=== PATIENT | female | born 1945 | race Caucasian/White ===

== ENCOUNTER 2018-06-10 12:36 | Inpatient (IN) ==
--- NOTE | 2018-06-10 12:58 | Anesthesia Evaluation PreOp ---
Date of Encounter: 06/10/18 Time of Encounter: 12:56 - Past History Planned Operation: Left Carotid Endarterectomy Cardiac History: [place], HTN, Hyperlipidemia, Cardiac Stent (stent x 1 in 2012) Pulmonary History: Former smoker (quit in 1987), Other (latent TB) EMBEDDED CASE MANAGER History: Denies Any Significant HX Other Medical History: Renal (has right kidney only), Thyroid, GERD Anesthesia History: No Prior Anesthetic Complications, Past Anesthesia (left nephrectomy), Difficult Airway Alcohol Use: rarely Drug use: none Medications and Allergies Allopurinol [Zyloprim 100 MG] 100 mg PO DAILY 01/13/15 [History] Aspirin 81 mg PO DAILY 01/13/15 [History] Simvastatin [Zocor] 40 mg PO DAILY 01/13/15 [History] [place]-3/Dha/Epa/Fish Oil [Fish Oil 1,000 mg Softgel] 1 each PO DAILY 08/18/15 [History] Acetaminophen [Tylenol] 1,000 mg PO Q6HR PRN 08/05/17 [History] Cholecalciferol (D-3) [Vitamin D] 1,000 unit PO DAILY 08/05/17 [History] Escitalopram [Lexapro] 10 mg PO DAILY 08/05/17 [History] Gabapentin [Neurontin] 300 mg PO HS PRN 08/05/17 [History] Ixekizumab [Taltz Autoinjector] 80 mg SQ Q4W 08/05/17 [History] Acyclovir [Zovirax] 1 tab PO DAILY 12/19/17 [History] DiphenhydraMINE [Benadryl] 1 cap PO PRN PRN 12/19/17 [History] Omeprazole [PriLOSEC] 20 mg PO DAILY 12/19/17 [History] Calcitriol 0.5 mcg PO DAILY 06/06/18 [History] Methocarbamol [Robaxin-750] 750 mg PO TID 06/06/18 [History] Allergy/AdvReac Type Severity Reaction Status Date / Time NSAIDS (Non-Steroidal Allergy Gastrointestinal Verified 06/10/18 13:44 Anti-Inflamma Upset Sulfa (Sulfonamide Allergy Rash Verified 06/10/18 13:44 Antibiotics) Tizanidine [From Zanaflex] Allergy Anaphylaxis Verified 06/10/18 13:44 tramadol [From Ultram] Allergy Rash Verified 01/08/19 13:44 - Meds/Allergy Pre-op Review Medications Reviewed: Yes Allergies Reviewed: Yes Beta Blockers on Current Med List: Yes If Beta Blockers taken, Date/Time (Last Dose taken): 06/09/2018 at 2000 Anesthesia Results - Labs Laboratory Tests 06/04/18 06/04/18 06/04/18 09:34 09:34 09:34 WBC 8.8 Hgb 13.3 Hct 42.1 Plt Count 215 PT 11.3 INR 1.0 APTT 32.0 Sodium 139 Potassium 4.6 BUN 27 H Creatinine 1.52 H - Imaging EKG: report reviewed (06/06/2018 SINUS RHYTHM) Chest x-ray: report reviewed (04/30/2018 IMPRESSION: Stable chest without acute cardiopulmonary process.) Additional studies: 05/28/2018 Echo Impressions: LVEF 60%. Mild left ventricular diastolic dysfunction. LV asymmetric basal septal hypertrophy without LVOT obstruction. Normal right ventricular structure and function. Mild-moderate aortic regurgitation. Mild mitral regurgitation. Mild tricuspid regurgitation. No pulmonary hypertension. 11/13/2017 Stress Impression: Perfusion imaging was negative for ischemia or infarct. Exercise ECG is non diagnostic for ischemia due to non-specific ST and T wave abnormalities. Gated EF > 70%. Findings: Stress Note * Resting ECG demonstrated normal sinus rhythm with borderline IVCD and possible Q waves inferior and laterally. * No arrhythmias were noted during stress. * Patient had no chest pain during stress. * The exercise capacity was fair. * Exercise ECG is non diagnostic for ischemia due to non-specific ST and T wave changes. Hemodynamic responses * Normal hemodynamic responses to exercise. Study Quality * Study quality is average. Gated EF > 70% * Gated EF > 70%. Left Ventricle * The left ventricle is not dilated. TID * No evidence of transient ischemic dilatation. NORMALS * Normal wall motion. * Normal segmental perfusion in stress. * Normal Segmental Perfusion in rest. Anesthesia Exam O2 Sat Height 1.68 m Height 1.68 m Weight 103.419 kg Weight 103.419 kg O2 Sat by Pulse Oximetry 96 Vital Signs Temp Pulse Resp BP Pulse Ox 97.9 F 66 18 142/77 96 06/10/18 13:02 06/10/18 13:02 06/10/18 13:02 06/10/18 13:02 06/10/18 13:02 Height: 5'6'' Weight: 228 lbs NPO (# of Hours): 8 Pain Scale: 0 Pain Scale Used: Numeric (1 - 10) - HEENT Pupil (Motor): EOMI Mallampati: III Teeth: Normal Oral Opening: Greater than 3 - EMBEDDED CASE MANAGER LOC: Oriented EMBEDDED CASE MANAGER Motor: Normal RUE, Normal LUE, Normal RLE, Normal LLE, Normal Face EMBEDDED CASE MANAGER Sensory: Normal: RUE, LUE, RLE, Face, Deficit: LLE - Cardiac Rhythm: Regular Murmur: None - Pulmonary Breath Sounds: bilateral Clear Respiratory Effort: Symmetrical Anesthesia Assess/Plan ASA Score: 3 Level of consciousness: Cooperative, Oriented, Tranquil Anesthetic Plan: General Monitoring Plan: Standard Monitors, A-Line Recovery Plan: PACU
[2018-06-10] MEDS ORDERED: Heparin 1,000 UNITS/500 mL 500 ML ONE ×2 (13:11→14:26)
[2018-06-10] MEDS ORDERED: CeFAZolin Syr 2,000MG/20 ML 2,000 MG/20 ML SYRINGE IVPB ONE (13:17)
[2018-06-10] MEDS ORDERED: *HR* FentaNYL (PF) 100 MCG/2 ML VIAL ONE (13:21)
[2018-06-10] MEDS ORDERED: *HR* Propofol 200 MG/20 ML VIAL IVP ONE (13:21)
[2018-06-10] MEDS ORDERED: Lidocaine -MPF 4% 5 ML AMPUL ONE (13:21)
[2018-06-10] MEDS ORDERED: Lidocaine -MPF 2% 2 ML VIAL ONE ×2 (13:21→14:27)
[2018-06-10] MEDS ORDERED: Ringers Solution, Lactated 1,000 ML IVC SCH (13:30)
[2018-06-10] MEDS ORDERED: *HR* Remifentanil 2 MG VIAL IVP ONE (13:50)
[2018-06-10] MEDS ORDERED: Neostigmine Methylsulfate 3 MG/3 ML SYRINGE ONE (13:54)
[2018-06-10] MEDS ORDERED: *HR* HYDROmorphone (PF) 1 MG/ML SYRINGE IVP PRN (14:11)
[2018-06-10] MEDS ORDERED: ceFAZolin 1,000 MG, Sodium Chloride IRRigation 1,000 ML IR ONE (14:15)
--- NOTE | 2018-06-10 14:48 | History & Physical Report ---
Date of Encounter: 06/10/18 Time of Encounter: 14:48 24 Hour HP Update - Instructions Instructions: If the History and Physical is less than 30 days old and was completed prior to A.M. admission and or procedure and has NOT been updated on calendar day of procedure please complete this update prior to performing procedure. - Update Patient reports changes in Medical Condition: No Changes in examination, assessment, or condition: No Changes in Medication: No Preop tests/diagnostics Reviewed: Yes Surgery Remains Indicated: Yes Consent for Planned Operative Procedure(s) Verified: Yes - Pre-Operative Checklist Preoperative Checklist Indicated: Yes Prophylactic Antibiotic Ordered: Yes Home Medications Include Beta Bety: No Beta Bety Taken Today (Day of Surgery): No Beta Bety Taken Yesterday (Day Prior to Surgery): No Is VTE Prophylaxis Indicated?: Yes
[2018-06-10] MEDS ORDERED: *HR* Midazolam HCl 2 MG/2 ML VIAL ONE (14:50)
[2018-06-10] MEDS ORDERED: EPHEDrine 50 MG/ML VIAL ONE (15:21)
[2018-06-10] MEDS ORDERED: Ondansetron 4 MG/2 ML VIAL ONE (15:35)
[2018-06-10] MEDS ORDERED: Dexamethasone 4 MG/ML VIAL ONE (15:35)
--- NOTE | 2018-06-10 15:38 | Anesthesia Procedures ---
Date of Encounter: 06/10/18 Time of Encounter: 15:05 Procedures: Anesthesia - Arterial Line Sedation: Versed (mg): 2 Sedation: Fentanyl (mcg): 50 Supplemental Oxygen via Nasal Cannula (L/min): 10 Local Anesthetic: Lidocaine 1% Size (Gauge): 20 Technique Used: sterile prep, guide wire technique Patient tolerated procedure: well, no complications Complications: none Site: Radial L
[2018-06-10] MEDS ORDERED: *HR* Heparin 5,000 UNIT/ML VIAL ONE (16:30)
[2018-06-10] MEDS ORDERED: NiCARdipine 2.5 MG/10 ML Syringe IVPB ONE (17:38)
--- NOTE | 2018-06-10 17:54 | Operative Note ---
Date of procedure: 06/10/18 Pre-op diagnosis: left carotid stenosis Post-op diagnosis: same Procedure: left carotid endarterectomy with 8 Fr shunt and patch angioplasty Complications: 0 Anesthesia: GETA Surgeon: Jeffry Chow Was there an medical assistant prn present: No Estimated blood loss (cc): 100 Specimen: 0 Condition: stable Disposition: PACU Procedure in Detail: History This patient is a 73-year-old white female who was found to have carotid bruit. The patient went on to have a carotid duplex scan which was markedly abnormal in the left carotid system indicating a critical stenosis. Last Saturday she underwent an angiogram which demonstrated a 98+ percent stenosis of the proximal left internal carotid artery. The patient now comes to the operating room for left carotid endarterectomy. Procedure After informed consent was obtained the patient was taken the operating room. General endotracheal anesthesia was achieved under arterial line pressure monitoring. The left neck was sterilely prepped and draped. A timeout protocol was observed. An oblique incision was then made on the left neck. Dissection was carried down to the carotid sheath. The contents of the carotid sheath were identified. The artery was then selectively dissected and control was obtained. 5000 units heparin were administered intravenously. After 3 minutes later the vessels were clamped with the internal carotid artery clamped first. Using an 11 blade knife and Mas scissors the artery was opened. An 8 Chinese shunt was then inserted atraumatically. Patency of the shunt was confirmed by the use of intraoperative Doppler. Evaluation of the plaque revealed a heterogeneous plaque with areas of intramural hemorrhage which appeared to be relatively recent. This was suggested that the critical stenosis was a more recent event and placed the patient at high risk for stroke. The endarterectomy was then begun beginning at the distal aspect of the common carotid artery. A dissection plane was established circumferentially. After the lack was raised the plaque was excised. The orifice of the external carotid artery was also endarterectomized. The endpoint on the internal was smooth and no tacking sutures were necessary. The bed of the vessels and carefully inspected for any residual debris. A bovine pericardial patch was then sewn onto the vessel to perform a patch angioplasty. Leaving a small space open on the suture line the shunt was clamped and divided and removed. The final few sutures were then placed. The internal carotid artery was allowed to backbleed and then was reclamped. The external and common were opened and finally the internal was reopened. The patient had no hemodynamic distress with this maneuver. The patient had excellent pulses and Doppler signals throughout the carotid system. The wound was then irrigated and hemostasis achieved. A superficial cervical block using half percent Marcaine was performed. The wound was then closed in layers using absorbable sutures. No drains were placed. A dry sterile dressing was applied. The patient was extubated in the operating room. SHe was found be neurologically intact. The patient was then transported to the recovery room in stable condition.
--- NOTE | 2018-06-10 19:39 | Anesthesia Evaluation Post Op ---
Date of Encounter: 06/10/18 Time of Encounter: 19:20 - Vital Signs Vital Signs: Last Vital Signs Temp 97.7 F 06/10/18 19:00 Pulse 63 06/10/18 19:20 Resp 16 06/10/18 19:20 BP 119/57 06/10/18 19:20 Pulse Ox 96 06/10/18 19:20 - Lungs Lungs: Clear Ascult./Percussion - Airway Airway: Non-obstructed - Cardiovascular Regular Rate - Mental Status Mental Status: Alert & Oriented, Answers Appropriately - Pain Pain Scale: 3 - Nausea Vomiting Nausea Vomiting: Not Present - Hydration Hydration: Ice chips, Snow catheter - Discharge PostOp Status: Transfer Patient to floor
[2018-06-10] MEDS ORDERED: Ondansetron 4 MG/2 ML VIAL IVP PRN (20:49)
[2018-06-10] MEDS ORDERED: *HR* HYDROcodone/Acet 5/325 mg TABLET PO PRN (20:49)
[2018-06-10] MEDS ORDERED: Naloxone 0.4 MG/ML INJ IVP PRN ×2 (20:49)
[2018-06-10] MEDS ORDERED: Methocarbamol 500 MG TABLET PO PRN (20:49)
[2018-06-10] MEDS ORDERED: IXEKIZUMAB 80 MG SQ SCH (20:49)
[2018-06-10] MEDS ORDERED: Gabapentin 300 MG CAPSULE PO PRN (20:49)
[2018-06-11 04:53] LABS: Basophils % 0.1 %; Hematocrit 35.1 % (35.3-44.9); Immature Granulocytes % 0.4 % (0-4); Lymphocytes # 1.1 K/mcL (0.6-4.6); Lymphocytes % 11.8 %; Mean Corpuscular HGB Conc 31.9 g/dL (31.6-35.5); Mean Corpuscular Hemoglobin 30.3 pg (28.0-33.3); Mean Corpuscular Volume 94.9 fL (83.0-100.0); Mean Platelet Volume 10.6 fL (9.4-12.4); Monocytes # 0.2 K/mcL (0.0-1.3); Monocytes % 1.9 %; Neutrophils # 7.9 K/mcL (1.6-8.9); Platelet Count 171 K/mcL (140-400); Red Cell Distribution Width 13.6 % (11.5-14.5); Segmented Neutrophils % 85.8 %
[2018-06-11 04:55] LABS: Hemoglobin 11.2 g/dL (11.5-15.4)
[2018-06-11 05:13] LABS: Calcium 9.3 mg/dL (8.6-10.3); Potassium 4.4 mEq/L (3.5-5.1)
[2018-06-11] MEDS ORDERED: Cholecalciferol (D-3) 1,000 UNIT TABLET PO SCH (09:00)
[2018-06-11] MEDS ORDERED: Acyclovir 200 MG CAPSULE PO SCH (09:00)
[2018-06-11] MEDS ORDERED: Aspirin 81 MG TAB.CHEW PO SCH (09:00)
[2018-06-11] MEDS ORDERED: (Fish Oil 1,000 Mg Softgel) PO SCH (09:00)
--- NOTE | 2018-06-11 10:27 | Discharge Summary ---
Orders not resulted at time of discharge: Pending orders 06/06/18 17:53 Red Blood Cells [BBK] Routine Date of Encounter: 06/11/18 Time of Encounter: 08:40 - Discharge Diagnosis (1) Carotid artery stenosis Priority: Primary Status: Acute Comments: Patient had critical left internal carotid artery stenosis. She initially presented with a history of dizziness. A carotid bruit was detected. This led to a duplex scan which was markedly abnormal indicating a critical left internal carotid artery stenosis. Then a carotid artery and a gram was performed last week which showed a 98-99% left internal carotid artery stenosis. The patient underwent surgery yesterday. She had an uneventful operation and postoperative course. Qualifiers: Laterality: bilateral Qualified Code(s): I65.23 - Occlusion and stenosis of bilateral carotid arteries (2) Coronary artery arteriosclerosis Priority: Secondary Status: Chronic Comments: History of coronary artery disease (3) Hyperlipidemia Priority: Secondary Status: Chronic Qualifiers: Hyperlipidemia type: unspecified Qualified Code(s): E78.5 - Hyperlipidemia, unspecified (4) Chronic kidney disease (CKD) stage G3a/A3, moderately decreased glomerular filtration rate (GFR) between 45-59 mL/min/1.73 square meter and albuminuria creatinine ratio greater than 300 mg/g Priority: Secondary Status: Chronic Comments: History of chronic renal disease - Hospital Course Hospital course: Ms. Wilson is a 73 year old female With a carotid bruit and abnormal duplex scan. This led to a carotid angiogram. This demonstrated a critical left internal carotid artery stenosis. Patient was recommended to have urgent surgery and she presented to the hospital yesterday for carotid and arterectomy. Patient had a left carotid endarterectomy performed under general endotracheal anesthesia. The patient had no periprocedural or. Anesthetic complications. The patient had uneventful postoperative course. Patient was felt fit for discharge on the afternoon of postoperative day #1. Instructions were given in regards to her diet and activity and exercise as well as wound care. All questions were answered. - Time Spent with Patient Total time spent providing and/or coordinating discharge services: - Discharge Medications Home Medications: Allopurinol [Zyloprim 100 MG] 200 mg PO DAILY 01/13/15 [History] Aspirin 81 mg PO DAILY 01/13/15 [History] Simvastatin [Zocor] 40 mg PO HS 01/13/15 [History] [place]-3/Dha/Epa/Fish Oil [Fish Oil 1,000 mg Softgel] 1 each PO DAILY 08/18/15 [History] Acetaminophen [Tylenol] 1,000 mg PO Q6HR PRN 08/05/17 [History] Cholecalciferol (D-3) [Vitamin D] 1,000 unit PO DAILY 08/05/17 [History] Escitalopram [Lexapro] 10 mg PO DAILY 08/05/17 [History] Gabapentin [Neurontin] 300 mg PO HS PRN 08/05/17 [History] Ixekizumab [Taltz Autoinjector] 80 mg SQ Q4W 08/05/17 [History] Acyclovir [Zovirax] 400 mg PO DAILY 12/19/17 [History] DiphenhydraMINE [Benadryl] 1 cap PO DAILY PRN 12/19/17 [History] Omeprazole [PriLOSEC] 20 mg PO Q48H 12/19/17 [History] Calcitriol 0.5 mcg PO DAILY 06/06/18 [History] Methocarbamol [Robaxin-750] 750 mg PO TID PRN 06/06/18 [History] Allergies/Adverse Reactions: Allergy/AdvReac Type Severity Reaction Status Date / Time NSAIDS (Non-Steroidal Allergy Gastrointestinal Verified 06/10/18 13:44 Anti-Inflamma Upset Sulfa (Sulfonamide Allergy Rash Verified 06/10/18 13:44 Antibiotics) Tizanidine [From Zanaflex] Allergy Anaphylaxis Verified 06/10/18 13:44 tramadol [From Ultram] Allergy Rash Verified 06/10/18 13:44 Date of admission: 06/10/18 20:49 Primary care physician: Silke Fagan MD Consults: None Procedure(s) Performed: Left carotid endarterectomy with patch angioplasty Discharging clinician: Dr. Chow Anticipated date of discharge: 06/11/18 Exam Vital Signs, Last 4 Hours Temp Pulse Resp BP Pulse Ox 06/11/18 10:00 70 18 114/63 92 06/11/18 09:00 70 16 124/65 93 06/11/18 08:34 97.6 F 06/11/18 08:00 70 18 117/72 93 06/11/18 07:00 66 16 122/62 94 General: Present: Conversant, No Apparent Distress, Well developed, Well nourished HEENT: Present: Atraumatic, Normocephaly, Trachea midline Neck: Absent: JVD, Midline deformity, Tracheal deviation Cardiac: Present: Reg Rate and Rhythm Lungs: Present: Normal Breath Sounds Neuro: Present: Alert and responsive, No focal deficits noted, Cranial nerves grossly intact, Motor nerves grossly intact, Sensory nerves grossly intact Vascular: Present: Surgical incisions (Left neck incision is clean and dry) - Patient Status Disposition: Home, Self-Care Condition: Good Functional capacity at discharge: independent ambulation Overall status at discharge: patient is progressing back to baseline - Discharge Instructions Follow Up With: Silke Fagan MD [Primary Care Provider] - Jeffry Chow MD [Partnered Physician] - (F/U AT [facility] on 06/23/18--call for appt.) Additional Instructions: Keep left neck incision dry for total of 5 days following surgery. Use ice pack on the left neck for the next 48 hours. Resume usual home medications. No manual labor. No automobile driving. No lifting greater than 10 pounds. - Diet and Activity Activity: increase activity as tolerated Diet: advance to your usual diet
[2018-06-11 15:56] VITALS: BP 132/69
== END 2018-06-11 17:17 | disposition home or self-care (01) | DRG 39 ==
LOC: SAMDAY 12:36 → ICNU 20:49
PROVIDERS: ADMIT Surgery Vascular Surgery; ATTEND Surgery Vascular Surgery

== ENCOUNTER 2021-03-10 13:50 | Observation (INO) ==
[2021-03-10] MEDS ORDERED: Naloxone 0.4 MG/ML INJ IVP PRN (20:55)
[2021-03-10] MEDS ORDERED: Melatonin 3 MG TABLET PO PRN (20:55)
[2021-03-11 01:23] LABS: Adenovirus Not Detected (Not Detect); Bordetella Pertussis Not Detected (Not Detect); Chlamydophila pneumoniae Not Detected (Not Detect); Coronavirus 229E Not Detected (Not Detect); Coronavirus HKU1 Not Detected (Not Detect); Coronavirus NL63 Not Detected (Not Detect); Coronavirus OC43 Not Detected (Not Detect); Human Metapneumovirus Not Detected (Not Detect); Human Rhinovirus/Enterovirus Not Detected (Not Detect); Influenza A Subtype 2009 H1 Not Detected (Not Detect); Influenza B Not Detected (Not Detect); Mycoplasma pneumoniae Not Detected (Not Detect); Parainfluenza Virus 1 Not Detected (Not Detect); Parainfluenza Virus 2 Not Detected (Not Detect); Parainfluenza Virus 3 Not Detected (Not Detect); Parainfluenza Virus 4 Not Detected (Not Detect); Respiratory Syncytial Virus Not Detected (Not Detect); SARS-CoV-2 Not Detected (Not Detect)
[2021-03-11 02:43] LABS: Calcium 9.6 mg/dL (8.6-10.3); Potassium 4.4 mEq/L (3.5-5.1)
[2021-03-11] MEDS: *HR* Heparin 5,000 UNIT/ML VIAL SQ SCH ×2 (05:38→18:02)
[2021-03-11] MEDS: GuaiFENesin Liq 200 MG/10 ML UDC PO PRN (05:38)
[2021-03-11] MEDS ORDERED: MethylPREDNISolone 40 MG/ML VIAL IVP SCH (06:00)
[2021-03-11 07:09] LABS: Hemoglobin 12.1 g/dL (11.5-15.4); Red Cell Distribution Width 13.8 % (11.5-14.5)
[2021-03-11] MEDS ORDERED: Furosemide 20 MG/2 ML VIAL IVP SCH (09:00)
[2021-03-11] MEDS ORDERED: cefTRIAXone 1,000 MG in Water for inj. (sterile) 10 ML IVP SCH (09:00)
[2021-03-11] MEDS ORDERED: Azithromycin 500 MG in 0.9 % Sodium Chloride 250 ML IVPB SCH (09:00)
[2021-03-11 09:02] LABS: Basophils % 0.2 %; Hematocrit 37.7 % (35.3-44.9); Immature Granulocytes % 0.2 % (0-4); Lymphocytes # 1.5 K/mcL (0.6-4.6); Lymphocytes % 16.6 %; Mean Corpuscular HGB Conc 32.1 g/dL (31.6-35.5); Mean Corpuscular Hemoglobin 29.4 pg (28.0-33.3); Mean Corpuscular Volume 91.5 fL (83.0-100.0); Mean Platelet Volume 10.4 fL (9.4-12.4); Monocytes # 0.5 K/mcL (0.0-1.3); Monocytes % 5.8 %; Neutrophils # 6.8 K/mcL (1.6-8.9); Platelet Count 250 K/mcL (140-400); Red Blood Count 4.12 M/mcL (3.82-4.97); Segmented Neutrophils % 77.2 %; White Blood Count 8.9 K/mcL (4.3-11.1)
[2021-03-11] MEDS: Aspirin 81 MG TAB.CHEW PO SCH (09:31)
[2021-03-11] MEDS ORDERED: *HR* LORazepam 0.5 MG TABLET PO PRN (10:56)
[2021-03-11] MEDS ORDERED: *HR* LORazepam 0.5 MG TABLET PO ONE (10:58)
[2021-03-11] MEDS ORDERED: Artificial Tears SOLN 15 ML BOTTLE BOTH EYES PRN (18:14)
[2021-03-11] MEDS ORDERED: RISANKIZUMAB RZAA SQ SCH (18:15)
[2021-03-11] MEDS ORDERED: [UNRECOGNIZED DRUG - OTHER] SQ SCH (18:15)
[2021-03-11] MEDS: Gabapentin 300 MG CAPSULE PO SCH (18:42)
[2021-03-11] MEDS: Cefdinir 300 MG CAPSULE PO SCH (21:08)
[2021-03-12] MEDS: *HR* Heparin 5,000 UNIT/ML VIAL SQ SCH ×2 (04:59→17:17)
[2021-03-12] MEDS: Azithromycin 250 MG TABLET PO SCH (10:01)
[2021-03-12] MEDS: Folic Acid 1 MG TABLET PO SCH (10:01)
[2021-03-12] MEDS: Loratadine 10 MG TABLET PO SCH (10:01)
[2021-03-12] MEDS: Cholecalciferol (D-3) 1,000 UNIT (25MCG) TABLET PO SCH (10:01)
[2021-03-12] MEDS: Aspirin 81 MG TAB.CHEW PO SCH (10:01)
[2021-03-12] MEDS: Cefdinir 300 MG CAPSULE PO SCH ×2 (10:01→20:23)
[2021-03-12] MEDS: Gabapentin 300 MG CAPSULE PO SCH ×3 (10:01→20:24)
[2021-03-12] MEDS: Cyanocobalamin (B-12) 1,000 MCG TABLET PO SCH (10:01)
[2021-03-12] MEDS: allopurinoL 100 MG TABLET PO SCH (10:01)
[2021-03-12] MEDS: Acyclovir 200 MG CAPSULE PO SCH (10:01)
[2021-03-12] MEDS: Budesonide/Formoterol 160/4.5 1 PUFF INH IH SCH ×2 (11:05→20:15)
[2021-03-12] MEDS: GuaiFENesin Liq 200 MG/10 ML UDC PO PRN (15:45)
[2021-03-13 01:44] LABS: Calcium 10.3 mg/dL (8.6-10.3); Potassium 3.8 mEq/L (3.5-5.1)
[2021-03-13] MEDS: *HR* Heparin 5,000 UNIT/ML VIAL SQ SCH (06:22)
[2021-03-13 07:11] VITALS: TEMP 97.7
[2021-03-13] MEDS: Budesonide/Formoterol 160/4.5 1 PUFF INH IH SCH (07:31)
[2021-03-13] MEDS: Cyanocobalamin (B-12) 1,000 MCG TABLET PO SCH (08:21)
[2021-03-13] MEDS: Folic Acid 1 MG TABLET PO SCH (08:21)
[2021-03-13] MEDS: Aspirin 81 MG TAB.CHEW PO SCH (08:21)
[2021-03-13] MEDS: allopurinoL 100 MG TABLET PO SCH (08:21)
[2021-03-13] MEDS: Azithromycin 250 MG TABLET PO SCH (08:22)
[2021-03-13] MEDS: Loratadine 10 MG TABLET PO SCH (08:22)
[2021-03-13] MEDS: Gabapentin 300 MG CAPSULE PO SCH (08:22)
[2021-03-13] MEDS: Cefdinir 300 MG CAPSULE PO SCH (08:22)
[2021-03-13] MEDS: Cholecalciferol (D-3) 1,000 UNIT (25MCG) TABLET PO SCH (08:23)
[2021-03-13] MEDS: Acyclovir 200 MG CAPSULE PO SCH (08:24)
[2021-03-13 11:22] VITALS: BP 119/71; PULSE 65; O2SAT 94
[2021-03-13] MEDS ORDERED: FLU Vac QV 21-22 (6Month+)/PF 0.5 ML SYRINGE IM ONE (11:31)
== END 2021-03-13 13:58 | disposition home or self-care (01) ==
LOC: 2ANU → SUATTDRO 20:18
PROVIDERS: ADMIT Family Medicine; ATTEND Student in an Organized Health Care Education/Training Program